=== PATIENT | male | born 1970 | race Two or more races ===

== ENCOUNTER 2022-05-01 07:30 | Emergency (ER) | payer MEDICAID, OTHER ==
[~2022-05-01] VITALS: Ht 170.2 cm; Wt 130.0 kg
[2022-05-01 08:56] LABS: Basophils # (auto) 0 10 ^3/uL (0-0.2); Basophils % (auto) 0.2 % (0.0-2.0); Eosinophils # (auto) 0 10 ^3/uL (0-0.8); Hematocrit 42.1 % (41.0-53.0); Hemoglobin 15.2 g/dL (13.5-17.5); Lymphocytes # (auto) 0.6 10 ^3/uL (0.4-5.4); Lymphocytes % (auto) 5.8 % (10.0-50.0); Mean Corpuscular Hemoglobin 30.1 pg (28.0-32.0); Mean Corpuscular Volume 83.6 fL (80.0-100.0); Monocytes # (auto) 0.4 10 ^3/uL (0-1.3); Monocytes % (auto) 3.6 % (0.0-12.0); Neutrophils # (auto) 9.8 10 ^3/uL (1.6-8.6); Neutrophils % (auto) 90.4 % (37.0-80.0); Nucleated Red Blood Cells % 0.1 %; Red Blood Cells 5.04 10^6/uL (4.5-5.90); Red Cell Distribution Width 13.8 % (11.8-14.3); White Blood Cell 10.9 10^3/uL (4.4-10.8)
[2022-05-01 09:18] LABS: Albumin 3.7 g/dL (3.4-5.0); Potassium 3.4 mmol/L (3.5-5.1)
[2022-05-01 09:21] LABS: BUN/Creatinine Ratio 13.9; Bilirubin, Total 1.3 mg/dL (0.2-1.0); Total Protein 8.6 g/dL (6.4-8.2)
[2022-05-01 10:40] VITALS: BP 145/95
[2022-05-01] MEDS ORDERED: CLIN300C8 PO (10:45)
== END 2022-05-01 10:46 | disposition home or self-care (01) ==
LOC: ER 07:30
DX: L03.116 Cellulitis of left lower limb (principal)
CPT/HCPCS: 36415; 80053; 85025

== ENCOUNTER 2023-04-16 07:25 | Emergency (ER) | payer SELFPAY ==
[~2023-04-16] VITALS: Ht 170.2 cm; Wt 133.8 kg
[~2023-04-16 07:25] MED LIST: CLIN300C70 PO
[2023-04-16] MEDS ORDERED: CEPH500C PO (09:13)
[2023-04-16] MEDS ORDERED: BACDST PO (09:13)
[2023-04-16 09:17] VITALS: BP 126/83; PULSE 106; RESP 18; TEMP 98.3; O2SAT 96
== END 2023-04-16 09:35 | disposition home or self-care (01) ==
LOC: ER 07:25
DX: B99.9 Unspecified infectious disease (principal)

== ENCOUNTER 2024-09-08 16:40 | Emergency (ER) | payer MEDICAID ==
[~2024-09-08] VITALS: Ht 170.2 cm; Wt 134.9 kg
[~2024-09-08 16:40] MED LIST changes: +BACDST PO; +CEPH500C PO; +CLIN1CAP70 PO; -CLIN300C70 PO
--- NOTE | 2024-09-08 17:01 | ED.PDOC ---
History of Present Illness HPI Comments leg left redness since morning. no recent injuries, surgeries, immobility, travels. he has had the same issues in the past. was seen here twice in 2022, diagnosed with cellulitis. pt was seen at , but sent here due to hypoxia, tachycardia. here, his O2 saturation is 100% on RA Time Seen by MD: 16:50 Primary Care Provider: NONE Reviewed Notes: Nurses Notes, Medications, Allergies Allergies: Coded Allergies: NO KNOWN ALLERGIES (Unverified , 05/01/22) Home Meds Active Scripts Sulfamethoxazole W/Trimethopri (Bactrim Ds Tablet) 1 Tab Tb, 1 TAB PO BID, #20 TAB Prov:JAMES CONTRERAS 04/16/23 Cephalexin Monohydrate (Cephalexin) 500 Mg Cap, 1 CAP PO QID, #40 CAP Prov:JAMES CONTRERAS 04/16/23 Clindamycin Hcl (Clindamycin Hcl) 300 Mg Cap, 300 MG PO QID for 7 Days, #28 CAP Prov:MADELINE PEREZ PAC 05/01/22 Information Source: Patient Mode of Arrival: Ambulatory Severity: Mild Timing: Days (1) Duration: Since onset Past Medical History PAST MEDICAL HISTORY: Denies Past Medical History (Other): left leg cellulitis Surgical History: Denies all surgeries Family History Family History: Reviewed,noncontributory to illness, No family hx of Cancer, No family hx of DM, No family hx of Heart josh, No family hx of HTN, No family hx ofKidney josh, No family hx of Liver josh, No family hx of Lung josh, No family hx of Stroke Social History Smoker: Non-Smoker Alcohol: Denies ETOH Use Drugs: Denies Drug Use Lives In: Home Constitutional: denies: chills, diaphoresis, fatigue, fever, malaise, sweats, weakness, others EENTM: denies: blurred vision, double vision, ear bleeding, ear discharge, ear drainage, ear pain, ear ringing, eye pain, eye redness, hearing loss, mouth pain, mouth swelling, nasal discharge, nose bleeding, nose congestion, nose pain, photophobia, tearing, throat pain, throat swelling, voice changes, others Respiratory: denies: cough, hemoptysis, orthopnea, SOB at rest, shortness of breath, SOB with excertion, stridor, wheezing, others Cardiovascular: denies: chest pain, dizzy spells, diaphoresis, Dyspnea on exertion, edema, irregular heart beat, left arm pain, lightheadedness, palpitations, PND, syncope, others Gastrointestinal: denies: abdomen distended, abdominal pain, blood streaked bowels, constipated, diarrhea, dysphagia, difficulty swallowing, hematemesis, melena, nausea, poor appetite, poor fluid intake, rectal bleeding, rectal pain, vomiting, others Genitourinary: denies: burning, dysuria, flank pain, frequency, hematuria, incontinence, penile discharge, penile sore, pain, testicle pain, testicle swelling, urgency, others Neurological: denies: dizziness, fainting, headache, left sided numbness, left sided weakness, numbness, paresthesia, pre-existing deficit, right sided numbness, right sided weakness, seizure, speech problems, tingling, tremors, weakness, others Musculoskeletal: denies: back pain, gout, joint pain, joint swelling, muscle pain, muscle stiffness, neck pain, others Integumetry: reports: rash; denies: bruises, change in color, change in hair/nails, dryness, laceration, lesions, lumps, wounds, others Allergic/Immunocompromised: denies: Difficulty Healing, Frequent Infections, Hives, Itching, others Hematologic/Lymphatic: denies: anemia, blood clots, easy bleeding, easy bruising, swollen glands, others Endocrine: denies: excessive hunger, excessive sweating, excessive thirst, excessive urination, flushing, intolerance to cold, intolerance to heat, unexplained weight gain, unexplained weight loss, others Psychiatric: denies: anxiety, bipolar disorder, depression, hopeless, panic disorder, schizophrenia, sleepless, suicidal, others All Other Systems: Reviewed and Negative Physical Exam General Appearance: No Apparent Distress, Normal HEENT: Normal ENT Inspection, Pharynx Normal, TMs Normal Neck: Full Range of Motion, Non-Tender, Normal, Normal Inspection Respiratory: Chest Non-Tender, Lungs Clear, No Accessory Muscle Use, No Respiratory Distress, Normal Breath Sounds Cardiovascular: No Edema, No JVD, No Murmur, No Gallop, Normal Peripheral Pulses, Regular Rate/Rhythm Breast Exam: Deferred Gastrointestinal: No Organomegaly, Non Tender, No Pulsatile Mass, Normal Bowel Sounds, Soft Genitalia: Deferred Pelvic: Deferred Rectal: Deferred Extremities: No calf tenderness, Normal capillary refill, Normal inspection, Normal range of motion, Non-tender, No pedal edema Musculoskeletal : Apperance: Normal Neurologic: Alert, chrome cleaner II-XII nml as Tested, No Motor Deficits, Normal Affect, Normal Mood, No Sensory Deficits Cerebellar Function: Normal Reflexes: Normal Skin: Dry, Normal Color, Rash (left leg erythme, no calf tenderness. no asymmetry. anterior lamb with dry skin), Warm Lymphatic: No Adenopathy Was a procedure done? Was a procedure done?: No Differential Dx Considerations may include: cellulitis, dvt, sepsis, sprain, dermatitis X-Ray, Labs, Meds, VS Vital Signs Date Time Temp Pulse Resp B/P (MAP) Pulse Ox O2 Delivery O2 Flow Rate FiO2 09/08/24 17:00 98.1 117 18 100/68 (79) 100 98.1 09/08/24 17:00 Room Air 0 Time of 1ST Reevaluation: 17:40 Reevaluation 1ST: Improved Patient Education/Counseling: Diagnosis, Treatment, Prognosis, Need For Follow Up Family Education/Counseling: No Family Present Additional Information pt does not have dvt. his symptoms are consistent with cellulitis. he is not septic. Departure 1 Departure Time of Disposition: 17:41 Impression: Primary Impression: Cellulitis of left lower extremity without foot Disposition: 01 HOME / SELF CARE / HOMELESS Condition: Good e-Prescriptions Cephalexin (KEFLEX CAPSULE) 250 Mg Cp 1 CAP PO QID, #28 CAP Prov: DENIZ KOHLI MD 09/08/24 Discharged With: Self Critical Care Note Critical Care Time?: No Stability Stability form required: No DENIZ KOHLI MD September 08, 2024 17:01
--- NOTE | 2024-09-08 17:34 | DVH ---
Procedure: US LT Lower DVT Study Date and Requested Time: 09/08/2024 05:07 PM History: PAIN Comparison: None Technique: Multiple high resolution trinh-scale images with and without compression obtained of the le ft lower extremity veins, including the common femoral vein, deep femoral vein, proximal mid and dist al superficial femoral vein, and popliteal vein. Additional limited images of the greater saphenous v ein also obtained. Augmentation performed as indicated. Color and spectral doppler flow images obtain ed as indicated. Findings: No visible intraluminal venous thrombus. No evidence of incompressibility or abnormal color or spectr al Doppler flow visualized in the left lower extremity veins including, the common femoral vein, deep femoral vein, proximal mid and distal superficial femoral vein, and popliteal vein. Greater saphenou s vein grossly unremarkable. 1.3 cm in short axis left inguinal lymph node which is most likely reactive. Impression: No sonographic evidence of left lower extremity deep venous thrombosis.
[2024-09-08] MEDS ORDERED: CEPH250C PO (17:42)
[2024-09-08] MEDS ORDERED: cefTRIAXone SOD 1,000 MG VL IM ONE (17:45)
[2024-09-08 18:21] VITALS: PULSE 99; RESP 16; O2SAT 95
[2024-09-08 18:23] VITALS: BP 100/49; PULSE 99; RESP 16; TEMP 98.1; O2SAT 95
[2024-09-08] MEDS ORDERED: ZOFR4T PO (18:32)
[2024-09-08] MEDS ORDERED: IBU600T PO (18:32)
[2024-09-08] MEDS: ONDANSETRON ODT 4 MG TAB PO ONE (18:35)
[2024-09-08] MEDS: cefTRIAXone W LIDOCAINE 1 GM IM IM ONE (18:46)
== END 2024-09-08 18:48 | disposition home or self-care (01) ==
LOC: ER 16:47
DX: L03.116 Cellulitis of left lower limb (principal); Z79.899 Other long term (current) drug therapy; Z98.890 Other specified postprocedural states
CPT/HCPCS: 93971; 96372; 99285; J0696; Q0162